=== PATIENT | female | born 1990 ===

== ENCOUNTER 2020-05-30 19:31 | Inpatient (IN) | payer OTHER ==
[2020-05-30] MEDS ORDERED: Ibuprofen 800 MG TAB PO PRN (19:58)
[2020-05-30] MEDS ORDERED: Misoprostol 200 MCG TAB PR PRN (19:58)
[2020-05-30] MEDS ORDERED: HYDROcodone/Acetaminophen 5/325 mg Tablet PO PRN (19:58)
[2020-05-30] MEDS ORDERED: Methylergonovine 0.2 MG/ML VIAL IM PRN (19:58)
[2020-05-30] MEDS ORDERED: Carboprost 250 MCG/ML AMP IM PRN (19:58)
[2020-05-30] MEDS ORDERED: hydrALAZINE 20 MG/ML VIAL SLOW IVP PRN (19:58)
[2020-05-30] MEDS ORDERED: Diphenoxylate HCl/Atropine Tablet PO PRN (19:58)
[2020-05-30] MEDS ORDERED: Lidocaine 1% (PF) 30 ML VIAL SC PRN (19:58)
[2020-05-30] MEDS ORDERED: Butorphanol Tartrate 1 MG/ML VIAL SLOW IVP PRN (19:58)
[2020-05-30] MEDS ORDERED: Promethazine HCl 25 MG/ML VIAL IM PRN (19:58)
[2020-05-30] MEDS ORDERED: Acetaminophen 500 MG TAB PO PRN (19:58)
[2020-05-30] MEDS ORDERED: Ondansetron PF 4 MG/2 ML Vial IVP PRN (19:58)
[2020-05-30 20:35] VITALS: BMI 27.4
[2020-05-30] MEDS: Lactated Ringer's 1,000 ML IV SCH (20:40)
[2020-05-30] MEDS ORDERED: NS w/ Oxytocin 10 units 500 ML IV SCH (20:45)
[2020-05-30 20:51] LABS: Hemoglobin 13.1 g/dL (12.0-16.0); Mean Corpuscular HGB CONC 35.3 g/dL (32.0-36.0); Mean Corpuscular Volume 96.4 fL (78.0-98.0); Mean Platelet Volume 8.1 fL (7.4-10.4); Platelet Count 161 thou/uL (130-400); RBC Distribution Width 11.7 % (11.5-14.5); Red Blood Cell (RBC) Count 3.85 mill/uL (4.20-5.40); White Blood Cell (WBC) Count 9.6 thou/uL (4.8-10.8)
[2020-05-30] MEDS: Misoprostol 100 MCG TAB VAG SCH (21:05)
[2020-05-30 21:41] LABS: Syphilis Antibody Nonreactive (Nonreactive); Syphilis Antibody Index 0.05 S/CO (<1.00 Non-Reactive)
[2020-05-30 23:20] LABS: HBSAg Index 0.14 S/CO (0-0.99); Hep B Surf Ag Non-Reactive S/CO (NonReactive)
[2020-05-31] MEDS: Misoprostol 100 MCG TAB VAG SCH (00:09)
[2020-05-31] MEDS: Lactated Ringer's 1,000 ML IV SCH ×4 (04:00→20:50)
[2020-05-31] MEDS ORDERED: Terbutaline Sulfate 1 MG/ML VIAL ONE (04:15)
--- NOTE | 2020-05-31 08:20 | PDOC.LDHP ---
Labor and Delivery H&P Chief complaint: scheduled induction HPI: 29yo at 40w by LMP here for elective IOL. s/p cytotec x 2 overnight resulting in recurrent late decels that responded to resuscitation with intermittent late decels. Current gestational age (weeks): 40 Due date: 05/30/20 Dating criteria: last menstrual period Grav: 1 Para: 0 Current complications: none Abnormal US findings: No Past Medical History: denies Current medications: pre-mani vitamins Previous surgical history: none Allergies/Adverse Reactions: Allergies Allergy/AdvReac Type Severity Reaction Status Date / Time No Known Allergies Allergy Unverified 05/30/20 20:24 Social history: none - Physical Exam Vital signs reviewed and normal: yes General: NAD Heart: RRR Lungs: CTAB Abdomen: gravid Extremeties: no edema FHT: category 1 [place] contractions every: 3min - Vaginal Exam cm dilated: 1 Effacement: 75% Station: -2 (cook balloon placed 60/60) - OB Labs Blood type: A RH: positive Antibody Screen: negative HIV: negative RPR: negative HEPSAg: negative 1 hour GCT: negative GBS: negative Urine drug screen: negative Rubella: immune - Assessment L&D Assessment: elective induction at term - Plan Plan: admit to L&D, cervical ripening, labor augmentation if indicated, informed consent obtained, anesthesia consult for pain management
[2020-05-31] MEDS ORDERED: Fentanyl 4 mcg/Bup 0.1% Cadd 100 ML ONE ×3 (10:05→23:47)
[2020-05-31] MEDS ORDERED: EPHEDRINE 25 MG/5 ML SYRINGE ONE (10:39)
[2020-05-31] MEDS ORDERED: Bupivacaine/Epinephrine 0.25% 30 ML VIAL ONE (10:39)
[2020-05-31] MEDS ORDERED: Lactated Ringer's 500 ML IV PRN (13:21)
[2020-05-31] MEDS ORDERED: Naloxone HCl 0.4 mg/ml Vial IVP PRN ×2 (13:21)
[2020-05-31] MEDS ORDERED: diphenhydrAMINE 50 MG/ML VIAL IVP PRN (13:21)
[2020-05-31] MEDS ORDERED: Ondansetron PF 4 MG/2 ML Vial IVP PRN (13:21)
[2020-05-31] MEDS ORDERED: Acetaminophen 325 MG TAB PO PRN (13:21)
[2020-05-31] MEDS ORDERED: Promethazine HCl 25 MG/ML VIAL IM PRN (13:21)
[2020-05-31] MEDS ORDERED: EPHEDRINE 25 MG/5 ML SYRINGE SLOW IVP PRN (13:21)
[2020-05-31] MEDS ORDERED: Communication Order-Pharmacy FS SCH (13:30)
[2020-05-31] MEDS: Fentanyl 4 mcg/Bupivacaine 0.1% Cassette 100 ML EPIDURAL SCH (18:11)
--- NOTE | 2020-05-31 19:21 | PDOC.EVN ---
Event Note - Event Note Event Note: Asked to AROM by Dr. Louis. Comfortable with epidural SVE 4-5/80/0, -1, vtx. AROM- clear with bloody show. FHTs stable at present. IUPC to be placed by Labor RN.
[2020-06-01] MEDS ORDERED: Fentanyl 4 mcg/Bup 0.1% Cadd 100 ML ONE (06:09)
[2020-06-01] MEDS: Fentanyl 4 mcg/Bupivacaine 0.1% Cassette 100 ML EPIDURAL SCH (06:18)
--- NOTE | 2020-06-01 07:51 | PDOC.LDPN ---
Labor & Delivery Progress Note - Subjective Subjective: comfortable, vaginal pressure - Objective Vital signs reviewed and normal: yes General: NAD Uterine fundus: non tender Dilation: 9 Effacement: 90% Station: 0 (ROT anterior asynclitism) FHT: category 2, variable decelerations, late decelerations, variability present [place] contractions every: 5min Resuscitative measures: maternal oxygen, maternal IV fluids, maternal position change Plan: pitocin for augmentation (FHT reassuring x 30min, restart pit, if baby does not tolerate will be for PCS)
[2020-06-01] MEDS: NS / Oxytocin 40 units/1000ml 1,000 ML IV PRN ×2 (09:53→11:10)
--- NOTE | 2020-06-01 10:07 | PDOC.OPDEL ---
OB Operative/Delivery Note Delivery Dr/Surgeon: Heriberto Assist: n/a Pre-Delivery Diagnosis: elective induction Procedure/Post Delivery Dx: spontaneous vaginal delivery Weeks gestation: 40 Anesthesia: epidural - Findings A Sex: male - Additional Findings/Plan Placenta delivered: spontaneous Repaired Obstetrical Laceration: none Estimated blood loss: 400cc Compilations/Other Findings: NC x 1 delivered through Post delivery plan: routine recovery
[2020-06-01] MEDS ORDERED: NS / Oxytocin 40 units/1000ml 1,000 ML IV SCH (11:57)
[2020-06-01] MEDS ORDERED: Preparation H Ointment 28 GM TUBE PR PRN (11:57)
[2020-06-01] MEDS ORDERED: Milk Of Magnesia 30 ML UDCUP PO PRN (11:57)
[2020-06-01] MEDS ORDERED: HYDROcodone/Acetaminophen 5/325 mg Tablet PO PRN ×2 (11:57)
[2020-06-01] MEDS ORDERED: Bisacodyl 10 MG SUPP PR PRN (11:57)
[2020-06-01] MEDS ORDERED: diphenhydrAMINE 25 MG CAP PO PRN (11:57)
[2020-06-01] MEDS ORDERED: Benzocaine-Menthol 82.5 ML CAN TOP PRN (11:57)
[2020-06-01] MEDS ORDERED: hydrALAZINE 20 MG/ML VIAL SLOW IVP PRN (11:57)
[2020-06-01] MEDS ORDERED: Ondansetron PF 4 MG/2 ML Vial IVP PRN (11:57)
[2020-06-01] MEDS ORDERED: Lanolin Ointment 7 GM TUBE TOP PRN (11:57)
[2020-06-01] MEDS: Ibuprofen 800 MG TAB PO SCH ×2 (14:05→21:01)
--- NOTE | 2020-06-01 14:50 | PDOC.BPN ---
- Brief Progress Note COVID screen swab was neg
[2020-06-01] MEDS: Ferrous Sulfate 325 MG TAB PO SCH (18:37)
[2020-06-01] MEDS: Docusate Calcium (SURFAK) 240 MG CAP PO SCH (21:01)
--- NOTE | 2020-06-02 03:39 | PDOC.PP ---
Post Progress Note Post Day #: 1 Subjective: Doing well. States mild vaginal swelling but mild. Ambulating well. PO intake tolerated: yes Flatus: yes Ambulation: yes Vital Signs (12 hours) Temp Pulse Resp BP Pulse Ox 06/02/20 00:11 98.4 F 87 16 106/54 L 99 06/01/20 20:59 98.5 F 91 17 131/57 L 100 06/01/20 16:55 98.0 F 89 18 107/53 L Weight Weight 160 lb All past vitals reviewed - Physical Examination General: NAD Respiratory: non-labored breathing Abdominal: + bowel sounds, lochia, no distention, appropriately TTP Extremities: negative homans (B) Neurological: no gross focal deficits Psychiatric: A&Ox3, normal affect Result Diagrams: 05/30/20 20:41 Additional Labs: Post Labs Blood Type A POSITIVE 05/30/20 21:30 Hep Bs Antigen Non-Reactive S/CO (NonReactive) 05/30/20 20:41 (1) Vaginal delivery Code(s): O80 - ENCOUNTER FOR FULL-TERM UNCOMPLICATED DELIVERY Status: Acute - Assessment/Plan PPD 1 doing well. Routine PP care. Prob DC home Wednesday (tomorrow)
[2020-06-02] MEDS: Ibuprofen 800 MG TAB PO SCH ×3 (05:39→21:16)
[2020-06-02] MEDS: Docusate Calcium (SURFAK) 240 MG CAP PO SCH ×2 (08:39→21:16)
[2020-06-02] MEDS: Prenatal Vitamin 1 TAB PO SCH (08:39)
[2020-06-02] MEDS: Ferrous Sulfate 325 MG TAB PO SCH ×2 (08:40→16:14)
[2020-06-02] MEDS ORDERED: Adacel (T-DAP) 0.5 ML SYRINGE IM ONE (09:00)
--- NOTE | 2020-06-02 13:36 | PDOC.EVN ---
Event Note - Event Note Event Note: Baby to be discharged, wants to go home. VSS AF Gabbie marino. DC home this PM with precautions. RTC [address] Louis.
--- NOTE | 2020-06-02 16:00 | PDOC.EVN ---
Event Note - Event Note Event Note: Received call from floor that Baby's labs return abnormal. Will hold DC.
[2020-06-03] MEDS: Ibuprofen 800 MG TAB PO SCH ×2 (04:54→13:54)
--- NOTE | 2020-06-03 08:16 | PDOC.PP ---
Post Progress Note Post Day #: 2 Subjective: doing well stayed yesterday as baby was not DC'd PO intake tolerated: yes Flatus: yes Ambulation: yes Vital Signs (12 hours) Temp Pulse Resp BP 06/02/20 21:21 98.2 F 76 12 108/63 Weight Weight 160 lb - Physical Examination General: NAD Respiratory: non-labored breathing Abdominal: no distention Neurological: no gross focal deficits Psychiatric: A&Ox3, normal affect Result Diagrams: 05/30/20 20:41 Additional Labs: Post Labs Blood Type A POSITIVE 05/30/20 21:30 Hep Bs Antigen Non-Reactive S/CO (NonReactive) 05/30/20 20:41 (1) Vaginal delivery Code(s): O80 - ENCOUNTER FOR FULL-TERM UNCOMPLICATED DELIVERY Status: Acute - Assessment/Plan PPD2 plan for DC today when baby DC.
[2020-06-03] MEDS: Prenatal Vitamin 1 TAB PO SCH (08:31)
[2020-06-03] MEDS: Docusate Calcium (SURFAK) 240 MG CAP PO SCH (08:31)
[2020-06-03] MEDS: Ferrous Sulfate 325 MG TAB PO SCH ×2 (08:32→09:28)
[2020-06-03 09:28] VITALS: BP 126/74; TEMP 98.5
== END 2020-06-03 14:15 | disposition home or self-care (01) | DRG 807 ==
LOC: L&D 19:31 → 3SW 06-01 12:53
PROVIDERS: ADMIT Student in an Organized Health Care Education/Training Program; ATTEND Student in an Organized Health Care Education/Training Program
PROC: 10E0XZZ Delivery of Products of Conception, External Approach (ICD-10-PCS; principal; 2020-05-30)
PROC: 3E0P7VZ Introduction of Hormone into Female Reproductive, Via Natural or Artificial Opening (ICD-10-PCS; 2020-05-30)
PROC: 10H07YZ Insertion of Other Device into Products of Conception, Via Natural or Artificial Opening (ICD-10-PCS; 2020-05-30)
PROC: 10907ZC Drainage of Amniotic Fluid, Therapeutic from Products of Conception, Via Natural or Artificial Opening (ICD-10-PCS; 2020-05-30)
DX: O76 Abnormality in fetal heart rate and rhythm complicating labor and delivery (principal); Z37.0 Single live birth; Z3A.40 40 weeks gestation of pregnancy; O69.81X0 Labor and delivery complicated by cord around neck, without compression, not applicable or unspecified
CPT/HCPCS: 36415; 51702; 85027; 86780; 86850; 86900; 86901; 87340; J2590; J3105